=== PATIENT | female | born 1995 | race Caucasian/White ===

== ENCOUNTER 2022-11-15 22:18 | Emergency (ER) | payer OTHER ==
[2022-11-15 23:05] LABS: #Basophils 0.1 thou/uL (0.0-0.2); #Eosinphils 0.1 thou/uL (0.0-0.7); #Monocytes 0.6 thou/uL (0.11-0.59); #Neutrophils 11.8 thou/uL (1.40-6.50); %Basophils 0.4 % (0.0-1.0); %Eosinophils 0.5 % (0.0-10.0); %Lymphocytes 12.3 % (21.0-51.0); %Monocytes 4.1 % (0.0-10.0); %Neutrophils 82.4 % (42.0-75.0); Mean Corpuscular HGB CONC 31.6 g/dL (32.0-36.0); Mean Corpuscular Hemoglobin 24.9 pg (27.0-31.0); Mean Corpuscular Volume 78.9 fl (78.0-98.0); Mean Platelet Volume 10.3 fL (7.4-10.4); Platelet Count 341 10x3/uL (130-400); RBC Distribution Width 14.5 % (11.5-14.5); Red Blood Cell (RBC) Count 4.41 mill/uL (4.20-5.40); White Blood Cell (WBC) Count 14.3 10x3/uL (4.8-10.8)
[2022-11-15 23:28] LABS: ALT (SGPT) 62 U/L (8-55); AST (SGOT) 79 U/L (5-34); Albumin 4.5 g/dL (3.5-5.0); Alkaline Phosphatase 126 U/L (40-110); Anion Gap 14 mmol/L (10-20); BUN (Urea Nitrogen) 13 mg/dL (7.0-18.7); Bilirubin, Total 0.9 mg/dL (0.2-1.2); Calc. Creatinine Clearance 0 mL/min (70-130); Calcium 9.3 mg/dL (7.8-10.44); Carbon Dioxide 26 mmol/L (22-29); Chloride 105 mmol/L (98-107); Estimated GFR 101; Globulin 2.8 g/dL (2.4-3.5); Glucose 100 mg/dL (70-105); Lipase 31 U/L (8-78); Potassium 4.8 mmol/L (3.5-5.1); Protein, Total 7.3 g/dL (6.0-8.3); Sodium 140 mmol/L (136-145)
[2022-11-16 01:19] LABS: Bilirubin Negative (Negative); Blood, Urine 3+ (Negative); Clarity Turbid (Clear); Glucose, Urine (Dipstick) Normal (Negative); Ketone, Urine Negative (Negative); Leukocyte 500 Leu/uL (Negative); Nitrite Negative (Negative); Protein, Urine (Dipstick) 20 mg/dL (Neg-Trace); RBC/HPF Greater than 50 HPF (0-3); Specific Gravity, Urine 1.017 (1.002-1.036); Urobilinogen Normal mg/dL (Less than 2)
[2022-11-16 01:20] LABS: Bacteria/HPF Rare-Few HPF (None Seen)
== END 2022-11-16 01:51 | disposition home or self-care (01) ==
LOC: ERS 22:18
DX: K81.0 Acute cholecystitis (principal); D72.829 Elevated white blood cell count, unspecified
CPT/HCPCS: 36415; 76705; 80053; 81003; 81015; 83690; 85025; 87086

== ENCOUNTER 2022-12-26 09:20 | Observation (INO) | payer OTHER ==
[2022-12-26 09:46] LABS: #Basophils 0.1 thou/uL (0.0-0.2); #Eosinphils 0.1 thou/uL (0.0-0.7); #Monocytes 0.5 thou/uL (0.11-0.59); #Neutrophils 7.8 thou/uL (1.40-6.50); %Basophils 0.5 % (0.0-1.0); %Eosinophils 0.8 % (0.0-10.0); %Lymphocytes 21.5 % (21.0-51.0); %Monocytes 4.3 % (0.0-10.0); %Neutrophils 72.5 % (42.0-75.0); Hemoglobin 12.5 g/dL (12.0-16.0); Mean Corpuscular HGB CONC 32.6 g/dL (32.0-36.0); Mean Corpuscular Hemoglobin 25.8 pg (27.0-31.0); Mean Corpuscular Volume 79.1 fl (78.0-98.0); Mean Platelet Volume 10.9 fL (7.4-10.4); Platelet Count 341 10x3/uL (130-400); Red Blood Cell (RBC) Count 4.84 mill/uL (4.20-5.40); White Blood Cell (WBC) Count 10.8 10x3/uL (4.8-10.8)
[2022-12-26] MEDS ORDERED: Ondansetron PF 4 MG/2 ML Vial ONE (09:51)
[2022-12-26] MEDS ORDERED: fentaNYL 50 mcg/mL 1 mL Vial ONE (09:51)
[2022-12-26 09:53] LABS: BHCG - Serum Negative (NEGATIVE); Pregs Control Background? CLEAR/WHITE (CLR/WHITE); Pregs Control Bar Appear? YES (CONTROL BAR)
[2022-12-26 10:12] LABS: ALT (SGPT) 41 U/L (8-55); AST (SGOT) 53 U/L (5-34); Albumin 4.4 g/dL (3.5-5.0); Alkaline Phosphatase 121 U/L (40-110); Anion Gap 11 mmol/L (10-20); BUN (Urea Nitrogen) 7 mg/dL (7.0-18.7); Bilirubin, Total 0.6 mg/dL (0.2-1.2); Calc. Creatinine Clearance 0 mL/min (70-130); Calcium 9.4 mg/dL (7.8-10.44); Carbon Dioxide 23 mmol/L (22-29); Chloride 108 mmol/L (98-107); Estimated GFR 102; Globulin 2.7 g/dL (2.4-3.5); Glucose 120 mg/dL (70-105); Lipase 17 U/L (8-78); Potassium 3.9 mmol/L (3.5-5.1); Protein, Total 7.1 g/dL (6.0-8.3); Sodium 138 mmol/L (136-145)
[2022-12-26] MEDS ORDERED: Acetaminophen 325 MG TAB PO PRN (14:17)
[2022-12-26] MEDS ORDERED: Morphine 4 MG/ML VIAL SLOW IVP PRN (14:17)
[2022-12-26] MEDS ORDERED: Ondansetron PF 4 MG/2 ML Vial IVP PRN (14:17)
[2022-12-26] MEDS ORDERED: Morphine 2 MG/ML VIAL SLOW IVP PRN (14:17)
[2022-12-26] MEDS ORDERED: D5 1/2 NS w/20 mEq KCL 1,000 ML ONE (20:09)
[2022-12-26] MEDS: D5 1/2 NS w/20 mEq KCL 1,000 ML IV SCH (20:17)
[2022-12-27 02:05] VITALS: BMI 31.8
[2022-12-27] MEDS: Famotidine/PF 20 mg/2ml Vial SLOW IVP SCH ×2 (02:52→08:04)
[2022-12-27] MEDS: D5 1/2 NS w/20 mEq KCL 1,000 ML IV SCH ×3 (04:20→16:47)
[2022-12-27 05:06] LABS: #Eosinphils 0.1 thou/uL (0.0-0.7); #Monocytes 0.4 thou/uL (0.11-0.59); #Neutrophils 4.1 thou/uL (1.40-6.50); %Basophils 0.4 % (0.0-1.0); %Eosinophils 1.7 % (0.0-10.0); %Lymphocytes 34.2 % (21.0-51.0); %Monocytes 5.1 % (0.0-10.0); %Neutrophils 58.3 % (42.0-75.0); Hemoglobin 11.7 g/dL (12.0-16.0); Mean Corpuscular HGB CONC 31.8 g/dL (32.0-36.0); Mean Corpuscular Hemoglobin 25.6 pg (27.0-31.0); Mean Corpuscular Volume 80.5 fl (78.0-98.0); Mean Platelet Volume 10.7 fL (7.4-10.4); Platelet Count 310 10x3/uL (130-400); RBC Distribution Width 15.1 % (11.5-14.5); Red Blood Cell (RBC) Count 4.57 mill/uL (4.20-5.40); White Blood Cell (WBC) Count 7.1 10x3/uL (4.8-10.8)
[2022-12-27 05:33] LABS: ALT (SGPT) 89 U/L (8-55); AST (SGOT) 56 U/L (5-34); Albumin 4.4 g/dL (3.5-5.0); Alkaline Phosphatase 124 U/L (40-110); Anion Gap 9 mmol/L (10-20); BUN (Urea Nitrogen) 5 mg/dL (7.0-18.7); Bilirubin, Total 0.9 mg/dL (0.2-1.2); Calc. Creatinine Clearance 164 mL/min (70-130); Calcium 9.2 mg/dL (7.8-10.44); Carbon Dioxide 24 mmol/L (22-29); Chloride 108 mmol/L (98-107); Estimated GFR 121; Globulin 2.8 g/dL (2.4-3.5); Glucose 74 mg/dL (70-105); Potassium 3.9 mmol/L (3.5-5.1); Protein, Total 7.2 g/dL (6.0-8.3); Sodium 137 mmol/L (136-145)
[2022-12-27] MEDS ORDERED: CEFAZOLIN 2 GM in Sodium Chloride 0.9% 100 ML IVPB SCH (11:45)
[2022-12-27] MEDS ORDERED: Dextrose 50% Abboject 50 ML SYRINGE ONE (12:02)
[2022-12-27] MEDS ORDERED: fentaNYL PF 100 MCG/2 ML SYRINGE ONE (12:44)
[2022-12-27] MEDS ORDERED: SUGAMMADEX SODIUM 200 MG/2 ML VIAL ONE (12:44)
[2022-12-27] MEDS ORDERED: Bupivacaine HCl 0.5%/Epinephrine 1:200,000/PF 30 ml Vial ONE (12:45)
[2022-12-27] MEDS ORDERED: Iopamidol 15 ML ONE (12:45)
[2022-12-27] MEDS ORDERED: CEFAZOLIN 2 GM VIAL ONE (12:59)
[2022-12-27] MEDS ORDERED: Sodium Chloride 0.9% 100 ML ONE (12:59)
[2022-12-27] MEDS ORDERED: Sevoflurane 250 ML INH ANEST BOTTLE ONE (13:05)
[2022-12-27] MEDS ORDERED: Ketorolac Tromethamine 30 MG/ML VIAL ONE (13:13)
[2022-12-27] MEDS ORDERED: Rocuronium Bromide 10 MG/ML (10ML VIAL) ONE (13:13)
[2022-12-27] MEDS ORDERED: Lidocaine 1% PF 5 ML VIAL ONE (13:13)
[2022-12-27] MEDS ORDERED: Succinylcholine 200 MG/10 ml SYRINGE FS ONE (13:13)
[2022-12-27] MEDS ORDERED: Dexamethasone 20 MG/5 ML VIAL ONE (13:13)
[2022-12-27] MEDS ORDERED: PROPOFOL 200 MG/20 ML VIAL ONE (13:13)
[2022-12-27] MEDS ORDERED: diphenhydrAMINE 50 MG/ML VIAL ONE (13:13)
[2022-12-27] MEDS ORDERED: Ondansetron PF 4 MG/2 ML Vial ONE (13:13)
[2022-12-27] MEDS ORDERED: Promethazine HCl 25 MG/ML VIAL IM PRN (14:17)
[2022-12-27] MEDS ORDERED: Morphine Sulfate 2 MG/ML SYRINGE SLOW IVP PRN (14:17)
[2022-12-27] MEDS ORDERED: Ondansetron HCl/PF 4 MG/2 ML Vial IVP PRN (14:17)
[2022-12-27] MEDS ORDERED: Meperidine HCl/PF 25 MG/ML VIAL SLOW IVP PRN (14:17)
[2022-12-27] MEDS ORDERED: HYDROmorphone 2 MG/ML VIAL SLOW IVP PRN (14:17)
[2022-12-27] MEDS ORDERED: fentaNYL 50 mcg/mL 1 mL Vial ONE (15:05)
[2022-12-27] MEDS ORDERED: HYDROcodone/Acetaminophen 5/325 mg Tablet PO PRN (15:49)
[2022-12-27 16:42] VITALS: BP 110/70; TEMP 98.1
== END 2022-12-27 18:00 | disposition home or self-care (01) ==
LOC: ERS 09:20 → ERHOLD 13:15 → MSONC 12-27 01:43
PROVIDERS: ADMIT Surgery; ATTEND Surgery
PROC: 0FT44ZZ Resection of Gallbladder, Percutaneous Endoscopic Approach (ICD-10-PCS; principal; 2022-12-27)
PROC: BF03YZZ Plain Radiography of Gallbladder and Bile Ducts using Other Contrast (ICD-10-PCS; 2022-12-27)
DX: K80.12 Calculus of gallbladder with acute and chronic cholecystitis without obstruction (principal); Z79.899 Other long term (current) drug therapy
CPT/HCPCS: 36415; 36416; 47532; 76705; 80053; 83690; 84703; 85025; 88304; 93005; 96361; 96374; 96375; C1889; G0378; J1100; J1200; J1885; J2405; J2704; J3010; J3480; J3490; J7999; Q9967; S0028